=== PATIENT | male | born 1960 | race Caucasian/White ===

== ENCOUNTER 2018-09-22 09:58 | Emergency (ER) | payer OTHER ==
[2018-09-22] MEDS: KETOROLAC 15 MG INJ IM (10:45)
== END 2018-09-22 13:04 | disposition home or self-care (01) ==
LOC: E/R 09:58
DX: S16.1XXA Strain of muscle, fascia and tendon at neck level, initial encounter (principal); F17.210 Nicotine dependence, cigarettes, uncomplicated; Y04.8XXA Assault by other bodily force, initial encounter
CPT/HCPCS: 72125; 96372; 99285-25